=== PATIENT | female | born 1955 | race Caucasian/White ===

== ENCOUNTER 2016-06-12 13:04 | Emergency (ER) | payer OTHER ==
[2016-06-12 13:59] LABS: HEMATOCRIT 32.6 % (36.0-46.0); MCH 27.5 PG (29.0-34.0); MCHC 32.8 G/DL (30.0-36.0); MCV 83.8 FL (83-99); MEAN PLAT.VOLUME 9.5 uM^3 (9.5-12.4); PLATELET COUNT 452 K/uL (156-360); RBC DIS.WIDTH-CV 16.6 % (11.8-14.6); RBC DIS.WIDTH-SD 49.3 % (39-53); RED BLOOD COUNT 3.89 M/uL (3.80-5.20); WHITE BLOOD COUNT 9.9 K/uL (4.1-10.2)
[2016-06-12 14:01] LABS: BASOPHIL COUNT 0.1 K/uL (0-0.1); EOSINOPHIL (%) 2.6 % (0-5); EOSINOPHIL COUNT 0.3 K/uL (0-0.3); IMMATURE GRANULOCYTE (%) 0.2 % (0.0-0.7); IMMATURE GRANULOCYTE COUNT 0.2 K/uL; LYMPHOCYTE COUNT 2.9 K/uL (1.0-2.8); MONOCYTE (%) 7.9 % (3-12); MONOCYTE COUNT 0.8 K/uL (0-0.8); NEUTROPHIL (%) 59.8 % (45-76); NEUTROPHIL COUNT 5.9 K/uL (1.8-6.4)
[2016-06-12 14:05] LABS: AMYLASE 103 IU/L (1-118); CHLORIDE 96 mEq/L (99-109); POTASSIUM 4.7 mEq/L (3.7-5.4); SODIUM 135 mEq/L (136-147)
[2016-06-12 14:07] LABS: GLUCOSE 122 mg/dL (70-99)
[2016-06-12 14:08] LABS: ANION GAP 17 MEQ/L (2-14)
[2016-06-12 14:10] LABS: SERUM ETHYL ALCOHOL < 10 mg/dL
[2016-06-12 14:11] LABS: GFR ESTIMATE (CALCULATED) 5 mL/min/
[2016-06-12 14:12] LABS: UREA NITROGEN (BUN) 40 mg/dL (9-23)
[2016-06-12 14:14] LABS: LIPASE 45 U/L (1.0-51.0)
[2016-06-12 16:43] LABS: ADD MIUA? YES; BILIRUBIN NEGATIVE; BLOOD NEGATIVE; COLOR YELLOW ((YELLOW)); GLUCOSE (STRIP) 100; KETONES NEGATIVE; LEUKOCYTES NEGATIVE; NITRITE NEGATIVE; PROTEIN (STRIP) >=300; SPECIFIC GRAVITY 1.015 (1.000-1.030); UROBILINOGEN 0.2 MG/DL (0.2-1.0)
[2016-06-12 16:56] LABS: AMPHETAMINE NEGATIVE (500 ng/mL); BARBITURATES NEGATIVE (200 ng/mL); BENZODIAZEPINES NEGATIVE (150 ng/mL); COCAINE PRESUMPTIVE POSITIVE (150 ng/mL); INTERNAL CONTROLS VALID? YES; METHADONE NEGATIVE (200 ng/mL); METHAMPHETAMINE NEGATIVE (500 ng/mL); OPIATES (MORPHINE) NEGATIVE (100 ng/mL); OXYCODONE NEGATIVE (100 ng/mL); PHENCYCLIDINE NEGATIVE (25 ng/mL); PROPOXYPHENE NEGATIVE (300 ng/mL); THC CANNABINOIDS NEGATIVE (50 ng/mL); TRICYCLIC ANTIDEPRESSANTS NEGATIVE (300 ng/mL)
[2016-06-12 16:57] LABS: ADD MEDTOX COMMENT Y
[2016-06-12 16:58] LABS: RED BLOOD CELLS 0-5 /HPF (0-5)
[2016-06-12 16:59] LABS: BACTERIA RARE; CASTS NONE SEEN /LPF; CRYSTALS NONE SEEN; EPITHELIAL CELLS 1+; MUCUS NONE SEEN; UCUL ADDED? NO
== END 2016-06-12 17:52 | disposition home or self-care (01) ==
LOC: TRA 13:04
PROVIDERS: Emergency Medicine
DX: S30.1XXA Contusion of abdominal wall, initial encounter (principal); F14.10 Cocaine abuse, uncomplicated; R51 Headache; R07.9 Chest pain, unspecified; V48.0XXA Car driver injured in noncollision transport accident in nontraffic accident, initial encounter; Z86.73 Personal history of transient ischemic attack (TIA), and cerebral infarction without residual deficits; Z95.5 Presence of coronary angioplasty implant and graft; Z99.2 Dependence on renal dialysis
CPT/HCPCS: 70450; 71260; 72125; 72129; 72132; 73590; 74177; 80048; 81003; 82150; 83690; 84999; 85025; 86850; 86900; 86901; 90832; 99281; 99285; G0480; J1170; J2405